=== PATIENT | female | born 1985 | race Two or more races ===

== ENCOUNTER 2018-07-16 00:42 | Emergency (ER) | payer OTHER ==
[~2018-07-16] VITALS: Ht 154.9 cm; Wt 77.1 kg
--- NOTE | 2018-07-16 02:13 | PHYS DOC ---
Past Medical History Past Medical History: No Pertinent History Past Surgical History: Cholecystectomy, Alcohol Use: None Drug Use: None Adult General Chief Complaint Chief Complaint: ABDOMINAL PAIN [facility] HPI Patient is a 32-year-old female presents to the emergency room for evaluation of epigastric/left upper quadrant burning pain. She states the pain began this evening after eating dinner. She has had similar episodes of pain in the past. She has been seen by physicians in [place], from where she recently moved, and saw a theoretical physicist for her symptoms were related to acid reflux. She was placed on Zofran, and Zantac, and was recommended for an EGD, but movements before the procedure could be completed. She states the pain she is having now feels similar to her prior episodes. She has not had any vomiting and denies any black or bloody stools. She denies any chest pain or shortness of breath. There are no definite alleviating or exacerbating factors to her symptoms. Review of Systems Review of Systems Constitutional: Denies fever or chills [] Eyes: Denies change in visual acuity, redness, or eye pain [] HENT: Denies nasal congestion or sore throat [] Respiratory: Denies cough or shortness of breath [] Cardiovascular: The patient denies any shortness of breath, chest pain, palpitations, or orthopnea [] GI: No additional information not addressed in HPI [] : Denies dysuria or hematuria [] Musculoskeletal: Denies back pain or joint pain [] Integument: Denies rash or skin lesions [] Neurologic: Denies headache, focal weakness or sensory changes [] Endocrine: Denies polyuria or polydipsia [] All other systems were reviewed and found to be within normal limits, except as documented in this note. Current Medications Current Medications Current Medications Medications (Trade) Dose Ordered Sig/Saray Start Time Stop Time Status Last Admin Dose Admin Morphine Sulfate (Morphine Sulfate) 4 mg 1X ONCE 07/16/18 02:15 07/16/18 03:18 DC 07/16/18 03:12 4 MG Sodium Chloride 1,000 ml @ 1,000 mls/hr 1X ONCE 07/16/18 02:15 07/16/18 03:18 DC 07/16/18 03:12 1,000 MLS/HR Allergies Allergies Allergies Coded Allergies Type Severity Reaction Last Updated Verified No Known Drug Allergies 07/16/18 No Physical Exam Physical Exam PHYSICAL EXAM: CONSTITUTIONAL: Well developed, well nourished HEAD: normocephalic, atraumatic EENT: PERRL, EOMI. Conjunctivae normal color, sclerae non-icteric; moist mucous membranes. NECK: Supple, non-tender; no meningismus. LUNGS: Lungs CTA, breathing even and unlabored. Normal air movement. HEART: Regular rate and rhythm, no murmur CHEST: No deformity; non-tender ABDOMEN: The abdomen is soft, there is very mild left upper quadrant and epigastric tenderness to palpation, without rebound or guarding. The right upper quadrant is nontender. Wang sign is absent. The lower abdomen is soft and non-tender, no masses or bruits. EXTREM: Normal ROM; no deformity, no calf tenderness. Normal pulses palpable in all extremities. There is no pedal edema. SKIN: No rash; no diaphoresis NEURO: Alert; normal speech and cognition; CN's grossly intact; strength grossly intact without focal deficit. BACK: No CVA TTP. Current Patient Data Vital Signs Vital Signs Date Time Temp Pulse Resp B/P (MAP) Pulse Ox O2 Delivery O2 Flow Rate FiO2 07/16/18 03:12 96 Room Air 07/16/18 01:21 97.9 90 18 103/54 (70) 97.9 Lab Values Laboratory Tests Test 07/16/18 03:25 White Blood Count 14.3 x10^3/uL (4.0-11.0) H Red Blood Count 5.06 x10^6/uL (3.50-5.40) Hemoglobin 14.6 g/dL (12.0-15.5) Hematocrit 42.3 % (36.0-47.0) Mean Corpuscular Volume 84 fL (79-100) Mean Corpuscular Hemoglobin 29 pg (25-35) Mean Corpuscular Hemoglobin Concent 35 g/dL (31-37) Red Cell Distribution Width 13.4 % (11.5-14.5) Platelet Count 324 x10^3/uL (140-400) Neutrophils (%) (Auto) 79 % (31-73) H Lymphocytes (%) (Auto) 15 % (24-48) L Monocytes (%) (Auto) 4 % (0-9) Eosinophils (%) (Auto) 2 % (0-3) Basophils (%) (Auto) 0 % (0-3) Neutrophils # (Auto) 11.2 x10^3uL (1.8-7.7) H Lymphocytes # (Auto) 2.1 x10^3/uL (1.0-4.8) Monocytes # (Auto) 0.6 x10^3/uL (0.0-1.1) Eosinophils # (Auto) 0.3 x10^3/uL (0.0-0.7) Basophils # (Auto) 0.0 x10^3/uL (0.0-0.2) Sodium Level 138 mmol/L (136-145) Potassium Level 3.7 mmol/L (3.5-5.1) Chloride Level 103 mmol/L (98-107) Carbon Dioxide Level 25 mmol/L (21-32) Anion Gap 10 (6-14) Blood Urea Nitrogen 12 mg/dL (7-20) Creatinine 0.6 mg/dL (0.6-1.0) Estimated GFR (Cockcroft-Gault) 117.4 BUN/Creatinine Ratio 20 (6-20) Glucose Level 117 mg/dL (70-99) H Calcium Level 9.2 mg/dL (8.5-10.1) Total Bilirubin 0.4 mg/dL (0.2-1.0) Aspartate Amino Transferase (AST) 18 U/L (15-37) Alanine Aminotransferase (ALT) 43 U/L (14-59) Alkaline Phosphatase 65 U/L (46-116) Total Protein 7.9 g/dL (6.4-8.2) Albumin 3.9 g/dL (3.4-5.0) Albumin/Globulin Ratio 1.0 (1.0-1.7) Lipase 85 U/L (73-393) Serum Test, Qualitative Negative (NEG) Laboratory Tests 07/16/18 03:25 Laboratory Tests 07/16/18 03:25 EKG EKG [Normal sinus rhythm a rate of 81 beats for minute, normal axis, normal intervals, occasional PVCs. There are no acute ischemic ST/T changes.] Radiology/Procedures Radiology/Procedures [] Course & Med Decision Making Course & Med Decision Making Pertinent Lab studies reviewed. (See chart for details) [4:15 AM: The patient is feeling significantly better at this time. Her abdominal pain has completely resolved. Her abdomen has been reexamined, and is benign at this time. Her white blood count is noted to be somewhat elevated, there are no prior tests available for comparison. However given the patient's markedly clinical improvement, and lack of abdominal findings on exam or pain at this time, I do not believe that the patient warrants emergent CT scanning. Her pants will be changed to omeprazole, and she'll be given Carafate, and I discussed the use of [id number] antacids for symptom relief, and the importance of close GI follow-up. Return precautions were discussed in detail.] Dragon Disclaimer Dragon Disclaimer This electronic medical record was generated, in whole or in part, using a voice recognition dictation system. Departure Departure Impression: Primary Impression: Epigastric abdominal pain Disposition: HOME, SELF-CARE Condition: STABLE Referrals: GIULIANO CARVAJAL MD Patient Instructions: Abdominal Pain, Gastritis, Adult Scripts Sucralfate (CARAFATE) 1 Gm Tablet 1 TAB PO QID, #120 TAB 1 Refill Prov: ADELE EVANS MD 07/16/18 Omeprazole (OMEPRAZOLE) 20 Mg Capsule. 1 CAP PO DAILY, #30 CAP 1 Refill Prov: ADELE EVANS MD 07/16/18 ADELE EVANS MD Jul 16, 2018 02:13
[2018-07-16] MEDS ORDERED: IV NORMAL SALINE 1000ML BAG 1,000 ML IV ONE (02:15)
[2018-07-16] MEDS ORDERED: MORPHINE SULFATE 4 MG/ML VIAL. IV ONE (02:15)
[2018-07-16 03:32] LABS: BASO % 0 % (0-3); EOS # 0.3 x10^3/uL (0.0-0.7); EOS % 2 % (0-3); HEMATOCRIT 42.3 % (36.0-47.0); HEMOGLOBIN 14.6 g/dL (12.0-15.5); LYMPH # 2.1 x10^3/uL (1.0-4.8); LYMPH % 15 % (24-48); MEAN CORPUSCULAR HEMOGLOBIN 29 pg (25-35); MEAN CORPUSCULAR HGB CONC 35 g/dL (31-37); MEAN CORPUSCULAR VOLUME 84 fL (79-100); MONO # 0.6 x10^3/uL (0.0-1.1); MONO % 4 % (0-9); NEUT # 11.2 x10^3uL (1.8-7.7); NEUT % 79 % (31-73); PLATELET COUNT 324 x10^3/uL (140-400); RED BLOOD COUNT 5.06 x10^6/uL (3.50-5.40); RED CELL DISTRIBUTION WIDTH 13.4 % (11.5-14.5); WHITE BLOOD COUNT 14.3 x10^3/uL (4.0-11.0)
[2018-07-16 03:39] LABS: CALCIUM 9.2 mg/dL (8.5-10.1); CREATININE 0.6 mg/dL (0.6-1.0); GFR 117.4; POTASSIUM 3.7 mmol/L (3.5-5.1)
[2018-07-16 03:41] LABS: PREG TEST PT QUAL NEGATIVE (NEG)
[2018-07-16 03:45] LABS: ALBUMIN 3.9 g/dL (3.4-5.0); TOTAL BILIRUBIN 0.4 mg/dL (0.2-1.0); TOTAL PROTEIN 7.9 g/dL (6.4-8.2)
[2018-07-16 04:24] VITALS: BP 100/64
[2018-07-16] MEDS ORDERED: OMEP20CA9 PO (04:24)
[2018-07-16] MEDS ORDERED: SUCR1TAB35 PO (04:24)
--- NOTE | 2018-07-16 07:12 | EKG ---
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
== END 2018-07-16 04:35 | disposition home or self-care (01) ==
LOC: ER 00:42
DX: R10.13 Epigastric pain (principal); R10.12 Left upper quadrant pain; Z90.49 Acquired absence of other specified parts of digestive tract
CPT/HCPCS: 36415; 80053; 83690; 84703; 85025; 93005; 96374; 99285; J2270; J7030